=== PATIENT | female | born 1965 | race Caucasian/White ===

== ENCOUNTER → 2017-01-26 | Outpatient (CLI) | payer BC ==
[~2017-01-26] MED LIST: CHOL100010 PO; OMEG10007 PO
== END ==
LOC: C.PAPS 11:25
PROVIDERS: ATTEND Obstetrics & Gynecology
DX: Z01.419 Encounter for gynecological examination (general) (routine) without abnormal findings (principal)

== ENCOUNTER 2017-07-13 10:38 | Emergency (ER) | payer BC ==
[~2017-07-13] VITALS: Ht 167.6 cm; Wt 73.9 kg
[2017-07-13 10:46] VITALS: TEMP 36.7; Ht 167.6 cm; Wt 73.9 kg
[2017-07-13 10:59] VITALS: O2SAT 95
[2017-07-13] MEDS ORDERED: SODIUM CHLORIDE 0.9% 1000ML 1,000 ML IV SCH (11:15)
[2017-07-13 11:35] LABS: BASO % 0.4 %; BASO ABS # 0.02 K/uL (0-0.2); COMPLETE YES; EOS % 1.1 %; HEMATOCRIT 42.5 % (37-47); IG% 0.2 %; LYMPH % 37.3 %; LYMPH ABS # 1.76 K/uL (1.2-3.4); MEAN CORPUSCULAR HEMOGLOBIN 31.2 pg (25-34); MEAN CORPUSCULAR HGB CONC 33.2 g/dl (32-36); MEAN PLATELET VOLUME 9.9 fL (7.4-10.4); MONO % 8.7 %; NEUT % 52.3 %; PLATELET COUNT 329 K/uL (130-400); RED BLOOD COUNT 4.52 M/uL (4.2-5.4); WHITE BLOOD COUNT 4.72 K/uL (4.8-10.8)
[2017-07-13 11:37] LABS: PROTHROMBIN TIME (PATIENT) 10.8 SECONDS (9.0-12.0)
[2017-07-13 11:56] LABS: BLOOD UREA NITROGEN 10 mg/dl (7-18); BUN/CREATININE RATIO 10.6 (10-20); CARBON DIOXIDE 28 mmol/L (21-32); CHLORIDE 105 mmol/L (98-107); CREATININE 0.98 mg/dl (0.60-1.20); GLUCOSE 99 mg/dl (70-99); POTASSIUM 3.8 mmol/L (3.5-5.1); SODIUM 139 mmol/L (136-145)
[2017-07-13 12:01] LABS: CKMB/CK RATIO 0.9 (0-3.0)
[2017-07-13 12:12] VITALS: BP 133/71; PULSE 51; O2SAT 95
--- NOTE | 2017-07-13 12:24 | EMERGENCY ROOM VISIT NOTE ---
ED Visit Note First contact with patient: 10:59 Chief Complaint: Facial tingling. History of Present Illness: Ms. Ramos is a 52-year-old white female who ambulates into the ED complaining of facial tingling. Historically patient denies any previous significant past medical history. Patient reports yesterday afternoon she noticed some quivering of her lower lip and then this morning upon waking she noted some tingling sensations on the left side of her face. She reports she didn't return at research and felt her symptoms were possibly related to Ortega's palsy. She contacted her family doctor who encouraged her to come to the ED to evaluate for stroke. Currently patient's only complaint is left-sided facial tingling. This is throughout the face. She has not identified any aggravating or alleviating factors related to the tingling sensation. She has not taken a medication for tingling prior to arrival at the hospital. She does report over the last few days she had some mild preauricular discomfort and felt this was possibly related to TMJ syndrome and she also reports that over the last few weeks she has had oral surgery done on the left side of her mandible. She denies headache, dizziness, lightheadedness, visual changes, hearing changes , difficulty speaking, difficulty swallowing, drooling, facial droop, neck pain , back pain, chest pain, shortness of breath, abdominal pain, nausea, vomiting, extremity weakness/numbness/tingling, difficulty walking/coordinating body movements. Review of Systems: As noted above in history of present illness. At all body systems were reviewed and found to be negative as noted above. Past Medical History: Status post D&C and oral surgery. Current Medications: Patient denies. Allergies to Medications: Patient denies. Social History: Patient is currently employed; she feels safe in her home environment; she denies tobacco and alcohol use. Physical Examination: Vital Signs: Date Time Temp Pulse Resp B/P (MAP) Pulse Ox O2 Delivery O2 Flow Rate FiO2 07/13/17 12:12 51 18 133/71 95 Room Air 07/13/17 11:02 49 07/13/17 10:59 95 Room Air 07/13/17 10:46 36.7 52 18 145/81 100 Room Air GENERAL: 52-year-old female in no acute distress, nontoxic-appearing, afebrile and hemodynamically stable. NEUROLOGICAL: Awake, alert and oriented to person, place and time. Answering questions appropriately and following commands. Normal gait. Good hand eye coordination. Pronator drift test negative. Facial nerves II through XII grossly intact. Good short-term and long-term recall. Able to spell and count backwards. SKIN: Warm, dry and pink. No soft tissue eruptions or trauma noted. HEENT: Atraumatic and normocephalic. No facial droops. No flattening of the forehead muscles. No difficulty closing her eyelids and keeping them close against resistance. PERRLA. EOMI without nystagmus. Sclera white and conjunctiva pink. Oral cavity moist and pink. Pharynx is nonerythematous or edematous. Speech normal and clear. No lymphadenopathy. Trachea midline. No jugular venous distention. No carotid bruits. BACK: No tenderness over the bony spine. THORAX: Lungs sounds are clear to auscultation and equal bilaterally with symmetrical chest wall. No wheezing, rales or rhonchi. No crepitus, tenderness , subcutaneous air or deformities noted. HEART: Regular rate and rhythm. No gallops, rubs or murmurs are appreciated. ABDOMEN: Flat, soft and nontender. Positive bowel sounds in all quadrants. No guarding, rigidity or organomegaly. EXTREMITIES: Moves all extremities well on command and with purpose. All distal neurovascular statuses are intact and equal bilaterally. No calf tenderness or cords. ED Course: Patient is assessed as noted above. Patient's medication list was reviewed. Shortly after patient's workup was started I was called back to her room by nursing personnel and patient reported she did not want any testing done. She indicated that she felt this was needed. After lengthy conversation the risks and benefits were discussed with the patient and she signed out AGAINST MEDICAL ADVICE. Patient's case was reviewed with Dr. Larry; we agreed on diagnostic approach, treatment, disposition and plan. Patient was educated about today's findings and instructed on her treatment plan ; she verbalized understanding and agreement with this plan. Clinical Impression: Facial paresthesias. AGAINST MEDICAL ADVICE. Decision-Making: Initially my differential diagnosis I considered Ortega's palsy, CVA, and other causes. Patient's blood pressure: Elevated. Blood pressure disposition: Situational. Disposition: Patient discharged home in stable condition. Plan: Patient was encouraged to continue her prescribed medications. Patient is encouraged to follow-up with her family doctor later today. Patient is encouraged return ED for worsening symptoms or any new/concerning symptoms.
== END 2017-07-13 12:27 | disposition left against medical advice (07) ==
LOC: C.EDB 10:40 → C.EDC 12:27
DX: R20.2 Paresthesia of skin (principal); Z98.818 Other dental procedure status; M26.629 Arthralgia of temporomandibular joint, unspecified side; R03.0 Elevated blood-pressure reading, without diagnosis of hypertension